=== PATIENT | female | born 1985 | race African-American/Black ===

== ENCOUNTER 2022-01-09 11:10 | Emergency (ER) | payer OTHER | END 2022-01-09 11:44 | disposition home or self-care (01) | LOC: ERS 11:10 | DX: L03.317 Cellulitis of buttock (principal); G43.909 Migraine, unspecified, not intractable, without status migrainosus; Z79.899 Other long term (current) drug therapy | CPT/HCPCS: 99283 ==

== ENCOUNTER 2023-05-04 09:34 | Outpatient (CLI) | payer OTHER | END 2023-05-04 09:35 | disposition home or self-care (01) | LOC: BICRAD 09:34 | PROVIDERS: ATTEND Internal Medicine | DX: Z02.71 Encounter for disability determination (principal) | CPT/HCPCS: 72100 ==